=== PATIENT | male | born 1975 | race Native Hawaiian/Other Pacific Islander ===

== ENCOUNTER 2017-03-27 12:18 | Emergency (ER) | payer MEDICAID ==
[2017-03-27 14:17] LABS: Basophils % (Auto) 0.5 % (0.0-1.8); Hematocrit 51.5 % (35.5-45.6); Hemoglobin 17.8 gm/dl (11.8-15.2); Mean Corpuscular HGB Conc 35 % (32-34); Mean Corpuscular Hemoglobin 31 pg (28-32); Mean Corpuscular Volume 89 fl (84-94); Platelet Count 223 K/mm3 (140-440); Red Blood Count 5.77 M/mm3 (3.65-5.03); White Blood Count 6.4 K/mm3 (4.5-11.0)
[2017-03-27 14:35] LABS: Alanine Aminotransferase 179 units/L (7-56); Albumin 5.1 g/dL (3.9-5); Albumin/Globulin Ratio 1.4 %; Alkaline Phosphatase 72 units/L (35-129); Anion Gap 20 mmol/L; BUN/Creatinine Ratio 25.83; Blood Urea Nitrogen 31 mg/dL (9-20); Calcium 9.6 mg/dL (8.4-10.2); Carbon Dioxide 29 mmol/L (22-30); Chloride 89.3 mmol/L (98-107); Glucose 156 mg/dL (75-100); Lipase 49 units/L (13-60); Potassium 3.7 mmol/L (3.6-5.0); Sodium 135 mmol/L (137-145); Total Protein 8.8 g/dL (6.3-8.2)
[2017-03-27 14:36] LABS: Bilirubin,Urine NEG (Negative); Blood,Urine NEG (Negative); Ketones,Urine NEG (Negative); Leukocyte Esterase,Urine NEG (Negative); Mucus,Urine FEW /HPF; Nitrite,Urine NEG (Negative); Urobilinogen,Urine < 2.0 mg/dL (<2.0)
[2017-03-27] MEDS ORDERED: NACL 0.9% 1000 ML 1,000 ML IV ONE (20:27)
--- NOTE | 2017-03-27 22:21 | Emergency Department Report ---
HPI - General Chief Complaint: Abdominal Pain Time Seen by Provider: 03/27/17 20:25 - HPI HPI: patient c/o abdominal cramping, ear pain, after working today. no fever, no n/ v. no sick contacts. patient denies any alleviating or exacerbating factors. states abdominal cramping is mild 2/10, lower abdomen, similar to previous discomfort he has had after work due to the strenuous activity there. ED Past Medical Hx - Past Medical History Previous Medical History?: No - Social History Smoking Status: Never Smoker - Medications Home Medications: Home Medications Medication Instructions Recorded Confirmed Last Taken Type Neomy/Polymyx B/Hc Otic Susp 4 drops OTIC TID #1 bottle 03/27/17 Unknown Rx [Cortisporin (Otic) Susp] ED Review of Systems ROS: Stated complaint: DEHYDRATED Other details as noted in HPI Comment: All other systems reviewed and negative ENT: ear pain Physical Exam - Physical Exam Vital Signs: Vital Signs 03/27/17 03/27/17 13:49 20:09 Temperature 98.4 F 99.2 F Pulse Rate 86 Respiratory 18 16 Rate Blood Pressure 139/103 O2 Sat by Pulse 98 Oximetry Physical Exam: Gen. alert and oriented 3 in no distress Head atraumatic normocephalic Eyes PERR LA EOMI Ears: Right tympanic membrane with surrounding erythema, redness. Chest regular rate and rhythm normal S1-S2 lungs clear bilaterally Abdomen soft nondistended Back no point tenderness paravertebral tenderness Neuro no focal deficit. Psych normal mood. ED Course Vital Signs 03/27/17 03/27/17 13:49 20:09 Temperature 98.4 F 99.2 F Pulse Rate 86 Respiratory 18 16 Rate Blood Pressure 139/103 O2 Sat by Pulse 98 Oximetry ED Medical Decision Making - Lab Data Result diagrams: 03/27/17 14:04 03/27/17 14:04 Critical care attestation.: If time is entered above; I have spent that time in minutes in the direct care of this critically ill patient, excluding procedure time. ED Disposition Clinical Impression: Dehydration, Ear ache, Otitis Disposition: DC-01 TO HOME OR SELFCARE Is pt being admited?: No Does the pt Need Aspirin: No Condition: Stable Instructions: Dehydration (ED), Cerumen Impaction (ED), Otitis Media (ED) Prescriptions: Neomy/Polymyx B/Hc Otic Susp [Cortisporin (Otic) Susp] 4 drops OTIC TID #1 bottle Referrals: PRIMARY CARE, [Primary Care Provider] - 3-5 Days
[2017-03-27 22:38] VITALS: BP 132/74
== END 2017-03-27 22:37 | disposition home or self-care (01) ==
LOC: ED 12:18
DX: R10.9 Unspecified abdominal pain (principal)
CPT/HCPCS: 36415; 80053; 81001; 82550; 83036; 83690; 85025; 96360; 99283; J7030